=== PATIENT | male | born 1990 | race Caucasian/White ===

== ENCOUNTER 2017-10-22 02:40 | Emergency (ER) | payer SELFPAY ==
[2017-10-22] MEDS ORDERED: Metoclopramide HCl 10 MG/2 ML VIAL ONE (03:10)
[2017-10-22] MEDS ORDERED: Ondansetron HCl/PF 4 MG/2 ML Vial ONE (03:10)
[2017-10-22] MEDS ORDERED: Ketorolac Tromethamine 30 MG/ML VIAL ONE (03:10)
[2017-10-22 03:41] LABS: #Basophils 0.1 thou/uL (0.0-0.2); #Eosinphils 0.1 thou/uL (0.0-0.7); #Lymphocytes 1.5 thou/uL (1.20-3.40); #Monocytes 1.1 thou/uL (0.11-0.59); #Neutrophils 13.4 thou/uL (1.40-6.50); %Basophils 0.9 % (0.0-1.0); %Eosinophils 0.5 % (0.0-10.0); %Lymphocytes 9.3 % (21.0-51.0); %Monocytes 6.9 % (0.0-10.0); %Neutrophils 82.4 % (42.0-75.0); Hemoglobin 16.1 g/dL (14.0-18.0); Mean Corpuscular Hemoglobin 31.1 pg (27.0-31.0); Mean Corpuscular Volume 91.5 fl (80.0-94.0); Mean Platelet Volume 6.7 fL (7.4-10.4); Platelet Count 320 thou/uL (130-400); RBC Distribution Width 11.8 % (11.5-14.5); White Blood Cell (WBC) Count 16.2 thou/uL (4.8-10.8)
[2017-10-22 03:46] LABS: ALT (SGPT) 127 U/L (8-55); AST (SGOT) 103 U/L (5-34); Albumin 4.2 g/dL (3.5-5.0); Alcohol Less than 10 mg/dL (Less than 10); Alkaline Phosphatase 73 U/L (40-150); Anion Gap 17 mmol/L (10-20); BUN (Urea Nitrogen) 12 mg/dL (8.9-20.6); Bilirubin, Total 2.1 mg/dL (0.2-1.2); Calc. Creatinine Clearance 0 mL/min (70-130); Calcium 9.3 mg/dL (7.8-10.44); Carbon Dioxide 25 mmol/L (22-29); Chloride 105 mmol/L (98-107); Estimated GFR-MDRD Greater than 90; Globulin 3.1 g/dL (2.4-3.5); Glucose 105 mg/dL (70-105); Lipase 18 U/L (8-78); Potassium 3.5 mmol/L (3.5-5.1); Protein, Total 7.3 g/dL (6.0-8.3); Salicylate Less than 8.0 mg/dL (15.0-30.0); Sodium 143 mmol/L (136-145)
[2017-10-22 04:15] LABS: Bilirubin Small (Negative); Blood, Urine Negative (Negative); Clarity Clear (Clear); Glucose, Urine (Dipstick) 100 mg/dL (Negative); Leukocyte Negative (Negative); Nitrite Negative (Negative); Protein, Urine (Dipstick) 30 mg/dL (Neg-Trace)
[2017-10-22 04:38] LABS: Amphetamine Detected (NotDetected); Barbiturates Screen Not Detected (NotDetected); Benzodiazepine Screen Not Detected (NotDetected); Cocaine Metabolite Screen Not Detected (NotDetected); Medtox Control Line Valid? VALID (VALID); Methadone Not Detected (NotDetected); Methamphetamine Detected (NotDetected); Opiate Screen Not Detected (NotDetected); Oxycodone Screen Not Detected (NotDetected); Phencyclidine (PCP) Not Detected (NotDetected); THC/Cannabinoid Screen Detected (NotDetected); Tricyclic Screen Not Detected (NotDetected)
[2017-10-22 04:39] LABS: Bacteria/HPF Rare-Few HPF (None Seen); RBC/HPF 0-3 HPF (0-3); WBC/HPF 0-3 HPF (0-3)
[2017-10-22] MEDS ORDERED: Sodium Chloride 0.9% 1,000 ML BAG ONE (13:31)
== END 2017-10-22 06:00 | disposition home or self-care (01) ==
LOC: MADERS 02:40
DX: R11.2 Nausea with vomiting, unspecified (principal); R10.816 Epigastric abdominal tenderness; R10.812 Left upper quadrant abdominal tenderness; R10.811 Right upper quadrant abdominal tenderness; F17.210 Nicotine dependence, cigarettes, uncomplicated
CPT/HCPCS: 36415; 80053; 80306; 80307; 81001; 82150; 83690; 85025; 87086; 96361; 96374; 96375; J1885; J2405; J2765; J7050

== ENCOUNTER 2017-10-22 20:29 | Emergency (ER) | payer SELFPAY ==
[~2017-10-22 20:29] MED LIST: Sodium Chloride 0.9% 1,000 ML BAG ONE
[2017-10-22] MEDS ORDERED: Pantoprazole 40 MG VIAL ONE (20:55)
[2017-10-22] MEDS ORDERED: Ondansetron HCl/PF 4 MG/2 ML Vial ONE (20:55)
[2017-10-22] MEDS ORDERED: Promethazine HCl 25 MG/ML VIAL ONE (20:55)
[2017-10-22 21:26] LABS: ALT (SGPT) 537 U/L (8-55); AST (SGOT) 442 U/L (5-34); Albumin 3.9 g/dL (3.5-5.0); Alkaline Phosphatase 70 U/L (40-150); Anion Gap 14 mmol/L (10-20); BUN (Urea Nitrogen) 16 mg/dL (8.9-20.6); Bilirubin, Total 1.9 mg/dL (0.2-1.2); Calc. Creatinine Clearance 0 mL/min (70-130); Calcium 8.8 mg/dL (7.8-10.44); Carbon Dioxide 28 mmol/L (22-29); Chloride 102 mmol/L (98-107); Estimated GFR-MDRD Greater than 90; Globulin 2.8 g/dL (2.4-3.5); Glucose 100 mg/dL (70-105); Lipase 20 U/L (8-78); Potassium 3.7 mmol/L (3.5-5.1); Protein, Total 6.7 g/dL (6.0-8.3); Sodium 140 mmol/L (136-145)
[2017-10-22 21:32] LABS: Hemoglobin 15.8 g/dL (14.0-18.0); MDiff Complete? YES; Mean Corpuscular HGB CONC 33.3 g/dL (32.0-36.0); Mean Corpuscular Hemoglobin 30.7 pg (27.0-31.0); Mean Corpuscular Volume 92.1 fl (80.0-94.0); Mean Platelet Volume 6.6 fL (7.4-10.4); Neutrophil 75 % (42-75); Platelet Count 296 thou/uL (130-400); Red Blood Cell (RBC) Count 5.15 mill/uL (4.70-6.10); White Blood Cell (WBC) Count 11.1 thou/uL (4.8-10.8)
[2017-10-22 21:33] LABS: Band 11 % (5-11); Lymphocytes 11 % (21-51); Monocytes 3 % (0-10)
--- NOTE | 2017-10-22 21:49 | RAD ---
PORTABLE CHEST: 10/22/17 HISTORY: Nausea and vomiting. Heart size and mediastinum are within normal limits. The lungs are clear of infiltrative process. No bony findings. IMPRESSION: No active intrathoracic disease. POS: [facility]
[2017-10-22 21:57] LABS: Acetaminophen Less than 6.0 mcg/mL (10.0-30.0)
[2017-10-22] MEDS ORDERED: Morphine 4 MG/ML VIAL ONE (22:08)
== END 2017-10-22 22:30 | disposition home or self-care (01) ==
LOC: MADERS 20:29
DX: K75.9 Inflammatory liver disease, unspecified (principal); F17.210 Nicotine dependence, cigarettes, uncomplicated
CPT/HCPCS: 36415; 71010; 80307; 83605; 83690; 96361; 96374; 96375; C9113; J2270; J2405; J2550; J7050

== ENCOUNTER 2019-04-21 11:50 | Emergency (ER) | payer SELFPAY ==
[2019-04-21] MEDS ORDERED: Morphine 10 MG/ML VIAL ONE (12:18)
--- NOTE | 2019-04-21 12:41 | RAD ---
Radiograph left femur 2 views: HISTORY: Persistent posttraumatic left femoral pain after blunt trauma 2 weeks ago. FINDINGS: No fracture or periosteal elevation. There is an approximately 1 x 1.5 cm sclerotic lesion at the lat eral inferior aspect of the intertrochanteric region that has a central focal lucency. IMPRESSION: 1. No fracture. 2. 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 Differential diagnosis is ost eoid osteoma versus bone island. If the patient's focus of pain is in this location, osteoid osteoma would be favored. This can be evaluated with noncontrast CT if the patient's focus of pain is in this location.
--- NOTE | 2019-04-21 13:23 | RAD ---
AP PELVIS: HISTORY: Pelvic pain after injury. FINDINGS: There is a sclerotic bone island seen in the intratrochanteric region of the left hip. The pelvic ri ng is intact without evidence of fracture. The patient is rotated. The SI joints are difficult to a ssess. The symphysis is normal in appearance. IMPRESSION: No evidence of fracture. POS: [facility]
[2019-04-21 13:29] LABS: #Basophils 0.1 thou/uL (0.0-0.2); #Eosinphils 0.1 thou/uL (0.0-0.7); #Monocytes 1.4 thou/uL (0.11-0.59); #Neutrophils 12.7 thou/uL (1.40-6.50); %Basophils 0.6 % (0.0-1.0); %Eosinophils 0.8 % (0.0-10.0); %Lymphocytes 12.1 % (21.0-51.0); %Monocytes 8.6 % (0.0-10.0); Mean Corpuscular HGB CONC 33.1 g/dL (32.0-36.0); Mean Corpuscular Hemoglobin 27.5 pg (27.0-31.0); Mean Corpuscular Volume 83.2 fL (78.0-98.0); Mean Platelet Volume 5.4 fL (7.4-10.4); Platelet Count 421 thou/uL (130-400); RBC Distribution Width 12.4 % (11.5-14.5); Red Blood Cell (RBC) Count 4.37 mill/uL (4.70-6.10); White Blood Cell (WBC) Count 16.2 thou/uL (4.8-10.8)
[2019-04-21 13:36] LABS: INR-International Normal Ratio 1.2; Prothrombin Time 15.2 SEC (12.0-14.7)
[2019-04-21 13:37] LABS: D-Dimer Test 0.74 *mcg/mL (0.27-0.43)
--- NOTE | 2019-04-21 13:41 | CT ---
EXAM: CT left hip without contrast HISTORY: Dropped a pipe on leg 2 weeks ago with pain medial to the left hip joint. Possible fluid col lection. COMPARISON: None TECHNIQUE: Multiple contiguous axial images were obtained and a CT of the pelvis without contrast. Sa gittal and coronal reformats were performed. FINDINGS: No pelvic fractures are seen. No fracture of the left femur is seen. No significant degene rative changes are seen. There is a well-circumscribed osseous lesion with a lucent center in the proximal left femur measuring 1.2 cm in size. The visualized intrapelvic structures are unremarkable. There is an apparent fluid collection in the left inguinal region measuring 4.4 cm in diameter and 7.6 cm in length. Stranding changes are seen surrounding this possible fluid collection in the left inguinal region. Evaluation is limited without IV contrast. IMPRESSION: Possible left inguinal fluid collection. This most likely represents a hematoma as it is the same density as the surrounding musculature.
[2019-04-21 13:45] LABS: ALT (SGPT) 13 U/L (8-55); AST (SGOT) 11 U/L (5-34); Albumin 3.6 g/dL (3.5-5.0); Alkaline Phosphatase 102 U/L (40-150); Anion Gap 13 mmol/L (10-20); BUN (Urea Nitrogen) 15 mg/dL (8.9-20.6); Bilirubin, Total 0.5 mg/dL (0.2-1.2); Calc. Creatinine Clearance 0 mL/min (70-130); Carbon Dioxide 24 mmol/L (22-29); Chloride 103 mmol/L (98-107); Estimated GFR-MDRD Greater than 90; Globulin 3.9 g/dL (2.4-3.5); Glucose 90 mg/dL (70-105); Potassium 4.1 mmol/L (3.5-5.1); Protein, Total 7.5 g/dL (6.0-8.3); Sodium 136 mmol/L (136-145)
== END 2019-04-21 14:18 | disposition short-term general hospital (02) ==
LOC: MADERS 11:50
DX: M79.662 Pain in left lower leg (principal); M79.89 Other specified soft tissue disorders; D72.829 Elevated white blood cell count, unspecified; D64.9 Anemia, unspecified; F17.210 Nicotine dependence, cigarettes, uncomplicated
CPT/HCPCS: 36415; 72170; 80053; 85025; 85379; 85610; 96372; J2270

== ENCOUNTER 2019-04-26 02:31 | Emergency (ER) | payer SELFPAY | END 2019-04-26 03:00 | disposition home or self-care (01) | LOC: MADERS 02:31 | DX: M79.652 Pain in left thigh (principal); F17.200 Nicotine dependence, unspecified, uncomplicated | CPT/HCPCS: 99281 ==

== ENCOUNTER 2019-04-28 13:33 | Emergency (ER) | payer SELFPAY ==
[2019-04-28] MEDS ORDERED: Iopamidol 370 76% 100 ML VIAL ONE (13:52)
[2019-04-28] MEDS ORDERED: Iopamidol 370 76% 125 ML VIAL FS ONE (13:53)
[2019-04-28 14:33] LABS: #Basophils 0.1 thou/uL (0.0-0.2); #Eosinphils 0.2 thou/uL (0.0-0.7); #Lymphocytes 2.2 thou/uL (1.20-3.40); #Monocytes 1.7 thou/uL (0.11-0.59); #Neutrophils 15.7 thou/uL (1.40-6.50); %Basophils 0.4 % (0.0-1.0); %Monocytes 8.6 % (0.0-10.0); Hemoglobin 11.5 g/dL (14.0-18.0); Mean Corpuscular HGB CONC 33.9 g/dL (32.0-36.0); Mean Corpuscular Volume 82.6 fL (78.0-98.0); Mean Platelet Volume 5.2 fL (7.4-10.4); Platelet Count 499 thou/uL (130-400); RBC Distribution Width 12.2 % (11.5-14.5); Red Blood Cell (RBC) Count 4.09 mill/uL (4.70-6.10); White Blood Cell (WBC) Count 19.8 thou/uL (4.8-10.8)
[2019-04-28 14:37] LABS: INR-International Normal Ratio 1.2; Prothrombin Time 15.5 SEC (12.0-14.7)
[2019-04-28] MEDS ORDERED: Morphine 4 MG/ML VIAL ONE (14:37)
[2019-04-28 14:48] LABS: ALT (SGPT) 11 U/L (8-55); AST (SGOT) 8 U/L (5-34); Albumin 3.2 g/dL (3.5-5.0); Alkaline Phosphatase 105 U/L (40-150); Anion Gap 15 mmol/L (10-20); BUN (Urea Nitrogen) 10 mg/dL (8.9-20.6); Bilirubin, Total 0.3 mg/dL (0.2-1.2); Calc. Creatinine Clearance 0 mL/min (70-130); Calcium 8.6 mg/dL (7.8-10.44); Carbon Dioxide 25 mmol/L (22-29); Chloride 102 mmol/L (98-107); Estimated GFR-MDRD Greater than 90; Globulin 3.8 g/dL (2.4-3.5); Glucose 95 mg/dL (70-105); Potassium 3.5 mmol/L (3.5-5.1); Sodium 138 mmol/L (136-145)
--- NOTE | 2019-04-28 15:49 | CT ---
CT pelvis with contrast: DATE: 04/28/2019 HISTORY: 29 year old male with leukocytosis, fever, and enlarging left groin hematoma. COMPARISON: Noncontrast CT of left hip of 04/21/2019 FINDINGS: The previously demonstrated left inguinal mass measuring approximately 4.5 x 7.5 x 3.5 cm, currently measures 6.5 x 11 x 8.5 cm. Contrast enhancement peripherally and along septations of this multilobulated mass. The mass is of slightly low attenuation, 38-year-old. In addition to the enhanci ng septa and mendoza of this mass, there is a focal 2 x 1.5 x 1.5 cm enhancing nodule at the anterior portion of this mass. This density is of the same attenuation as veins, and therefore this could repr esent active venous hemorrhaging. The underlying left common femoral artery appears to be grossly intact. There is no fracture or dislocation of the right or left hips or pelvis. Minimal amount of fr ee fluid within the posterior, dependent portion of the intrapelvic cavity. Normal urinary bladder. IMPRESSION: Interval increase in size of left groin mass. Possibilities include hematoma with active venous blee ding, abscess, or infected hematoma.
--- NOTE | 2019-04-28 16:17 | CT ---
Exam: CT angiogram of the chest HISTORY: Elevated white blood cell count. New onset chest pain. Inguinal injury. Fever. COMPARISON: None TECHNIQUE: CT angiogram of the chest is performed in the axial plane. Three-dimensional reformatted i mages are submitted for interpretation FINDINGS: Mediastinum: No mass, lymphadenopathy or hematoma. HEART: Normal size. No significant pericardial fluid. Aorta: No aneurysm or dissection Upper solid abdominal viscera: No abnormality enhancement. Trachea and central bronchi: Patent Pleural spaces: No effusion Lung parenchyma: Limited evaluation due to motion degradation. No masses or consolidation. Pneumothorax: None Osseous structures: No lytic or blastic lesions Pulmonary arteries:Limited evaluation of the pulmonary arterial system due to poor timing of contrast bolus and motion degradation. There is adequate contrast opacification of the central pulmonary arteries. The lobar, segmental and subsegmental arteries cannot be assessed. No obvious central pulmo nary embolism. IMPRESSION: 1. No obvious central pulmonary artery embolism. 2. No significant masses or consolidation lung parenchyma. 3. Examination is limited due to poor timing of contrast bolus and motion degradation
[2019-04-28] MEDS ORDERED: Sodium Chloride 0.9% 100 ML ONE (16:21)
[2019-04-28] MEDS ORDERED: Cefepime 2 GM VIAL ONE (16:21)
== END 2019-04-28 16:57 | disposition short-term general hospital (02) ==
LOC: MADERS 13:33
DX: A41.9 Sepsis, unspecified organism (principal); M79.81 Nontraumatic hematoma of soft tissue; R07.89 Other chest pain; F17.220 Nicotine dependence, chewing tobacco, uncomplicated
CPT/HCPCS: 71275; 72193; 80053; 84484; 85025; 85610; 85730; 87040; 93005; 96365; 96375; J0692; J2270; J3490; Q9967

== ENCOUNTER 2019-05-09 12:42 | Emergency (ER) | payer SELFPAY ==
[~2019-05-09 12:42] MED LIST changes: -Sodium Chloride 0.9% 1,000 ML BAG ONE; +Sodium Chloride Irrig Solution 250 ML BOT ONE
[2019-05-09] MEDS ORDERED: Morphine 4 MG/ML VIAL ONE (13:20)
== END 2019-05-09 14:02 | disposition home or self-care (01) ==
LOC: MADERS 12:42
DX: Z48.01 Encounter for change or removal of surgical wound dressing (principal); K72.90 Hepatic failure, unspecified without coma; F17.210 Nicotine dependence, cigarettes, uncomplicated
CPT/HCPCS: 96372; 99282; J2270

== ENCOUNTER 2019-07-03 00:04 | Emergency (ER) | payer SELFPAY ==
[2019-07-03] MEDS ORDERED: Sodium Chloride 0.9% 2,000 ML ONE (00:25)
[2019-07-03 01:08] LABS: #Basophils 0.2 thou/uL (0.0-0.2); #Eosinphils 0.2 thou/uL (0.0-0.7); #Monocytes 1.1 thou/uL (0.11-0.59); #Neutrophils 5.9 thou/uL (1.40-6.50); %Basophils 1.5 % (0.0-1.0); %Eosinophils 1.7 % (0.0-10.0); %Lymphocytes 28.9 % (21.0-51.0); %Monocytes 10.4 % (0.0-10.0); %Neutrophils 57.5 % (42.0-75.0); Mean Corpuscular HGB CONC 33.4 g/dL (32.0-36.0); Mean Corpuscular Hemoglobin 27.8 pg (27.0-31.0); Mean Corpuscular Volume 83.2 fL (78.0-98.0); Mean Platelet Volume 6.3 fL (7.4-10.4); Platelet Count 340 thou/uL (130-400); RBC Distribution Width 13.2 % (11.5-14.5); Red Blood Cell (RBC) Count 5.03 mill/uL (4.70-6.10); White Blood Cell (WBC) Count 10.2 thou/uL (4.8-10.8)
[2019-07-03 01:15] LABS: Acetaminophen Less than 6.0 mcg/mL (10.0-30.0); Alcohol Less than 10 mg/dL (Less than 10); Salicylate Less than 8.0 mg/dL (15.0-30.0)
[2019-07-03 01:54] LABS: ALT (SGPT) 14 U/L (8-55); AST (SGOT) 13 U/L (5-34); Alkaline Phosphatase 97 U/L (40-150); Anion Gap 19 mmol/L (10-20); BUN (Urea Nitrogen) 33 mg/dL (8.9-20.6); Bilirubin, Total 0.6 mg/dL (0.2-1.2); CK (CPK) 77 U/L (30-200); Calc. Creatinine Clearance 0 mL/min (70-130); Calcium 9.5 mg/dL (7.8-10.44); Carbon Dioxide 21 mmol/L (22-29); Chloride 102 mmol/L (98-107); Estimated GFR-MDRD 58; Globulin 3.5 g/dL (2.4-3.5); Glucose 99 mg/dL (70-105); Magnesium 2.5 mg/dL (1.6-2.6); Potassium 3.6 mmol/L (3.5-5.1); Protein, Total 8.5 g/dL (6.0-8.3); Sodium 138 mmol/L (136-145)
== END 2019-07-03 02:25 | disposition home or self-care (01) ==
LOC: MADERS 00:04
DX: T67.5XXA Heat exhaustion, unspecified, initial encounter (principal); F17.210 Nicotine dependence, cigarettes, uncomplicated; X30.XXXA Exposure to excessive natural heat, initial encounter
CPT/HCPCS: 80053; 80307; 82550; 83735; 84443; 85025; 96360; J7050

== ENCOUNTER 2019-11-08 12:53 | Emergency (ER) | payer SELFPAY ==
--- NOTE | 2019-11-08 13:32 | RAD ---
EXAM: 3 views of the left second toe HISTORY: Second toe pain and swelling COMPARISON: None FINDINGS: There is no evidence of acute fracture or dislocation. Mild soft tissue swelling is seen. N o degenerative changes are present. No radiopaque foreign body is seen. IMPRESSION: No evidence of acute osseous abnormality.
== END 2019-11-08 13:45 | disposition home or self-care (01) ==
LOC: MADERS 12:53
DX: S90.122A Contusion of left lesser toe(s) without damage to nail, initial encounter (principal); L60.0 Ingrowing nail; L03.032 Cellulitis of left toe; F17.210 Nicotine dependence, cigarettes, uncomplicated; W22.8XXA Striking against or struck by other objects, initial encounter

== ENCOUNTER 2021-02-26 19:29 | Emergency (ER) | payer SELFPAY ==
[2021-02-26] MEDS ORDERED: Promethazine 25 MG TAB ONE (21:03)
== END 2021-02-26 21:23 | disposition home or self-care (01) ==
LOC: MADERS 19:29
DX: K52.9 Noninfective gastroenteritis and colitis, unspecified (principal); L03.115 Cellulitis of right lower limb; R11.2 Nausea with vomiting, unspecified; F17.290 Nicotine dependence, other tobacco product, uncomplicated
CPT/HCPCS: 99283; Q0169